=== PATIENT | male | born 1965 | race Caucasian/White ===

== ENCOUNTER → 2021-03-07 | Outpatient (CLI) | payer OTHER ==
--- NOTE | 2021-03-07 12:32 | DIREP ---
PROCEDURE:XRAY KNEE 2 VWS-RT COMPARISON:None. INDICATIONS:[id number] PAIN IN RIGHT KNEE FINDINGS: BONES:AP and lateral views of the right knee. Mild varus angulation of the right knee. No acute fracture of the distal right femur, the tibial plateau, the proximal tibia and fibula or the patella is seen. JOINTS:A small joint effusion in the suprapatellar bursa. No loose bodies are seen. Mild sharpening of the tibial spines. No significant degenerative changes or joint space narrowing of the medial, lateral or the patellofemoral compartment. SOFT TISSUES:Normal. OTHER:No additional findings. CONCLUSION:No acute fracture is seen. Small joint effusion in the suprapatellar bursa. Dictated by: Avi Gonzalez MD on 03/07/2021 at 12:29 PM
== END | disposition home or self-care (01) ==
LOC: RAD 10:33
PROVIDERS: ATTEND Internal Medicine
DX: M25.461 Effusion, right knee (principal)
CPT/HCPCS: 73560